=== PATIENT | male | born 1950 | race Caucasian/White ===

== ENCOUNTER 2022-12-25 04:17 | Day surgery (SDC) | payer OTHER ==
[2022-12-24 09:31] VITALS: BMI 37.4
[2022-12-25] MEDS ORDERED: MIDAZOLAM HCL 2 MG/2 ML SINGLE DOSE VIAL ONE (09:10)
[2022-12-25] MEDS ORDERED: ONDANSETRON 4 MG/2 ML VIAL ONE (09:50)
[2022-12-25] MEDS ORDERED: ONABOTULINUMTOXINA 200 UNIT/VIAL VIAL IM ONE (10:07)
[2022-12-25 10:48] VITALS: PULSE 60; RESP 16
[2022-12-25 12:22] VITALS: BP 142/81; TEMP 97.5
== END 2022-12-25 12:20 | disposition home or self-care (01) ==
LOC: JASU-SURG 04:17
PROVIDERS: ATTEND Surgery
PROC: 015M3ZZ Destruction of Abdominal Sympathetic Nerve, Percutaneous Approach (ICD-10-PCS; principal; 2022-12-25 10:00)
DX: K43.9 Ventral hernia without obstruction or gangrene (principal)
CPT/HCPCS: J0585

== ENCOUNTER 2023-01-30 04:12 | Day surgery (SDC) | payer OTHER ==
[2023-01-28 11:44] VITALS: BMI 37.4
[2023-01-30] MEDS ORDERED: KETAMINE HCL 500 MG/10 ML VIAL ONE (07:12)
[2023-01-30] MEDS ORDERED: ROCURONIUM BROMIDE 50 MG/5 ML SYRINGE ONE ×2 (07:13→10:33)
[2023-01-30] MEDS ORDERED: PROPOFOL 20 ML ONE ×2 (07:13→07:18)
[2023-01-30] MEDS ORDERED: BUPIVACAINE HCL/PF 0.25% (2.5MG/ML) 10 ML VIAL ONE (07:49)
[2023-01-30] MEDS ORDERED: CEFOXITIN SODIUM 2 GM IVPB ONE (08:05)
[2023-01-30] MEDS ORDERED: HEPARIN NA (PORCINE) 5,000 UNITS/ML 1ML VIAL ONE ×2 (08:05→08:29)
[2023-01-30] MEDS ORDERED: HEPARIN NA (PORCINE) 5,000 UNITS/ML 1ML VIAL SQ ONE (08:30)
[2023-01-30] MEDS ORDERED: cefOXitin SODIUM 2 GM VIAL (RESTRICTED TO ID) IVPB ONE (08:30)
[2023-01-30] MEDS ORDERED: PROPOFOL 40 ML ONE (09:36)
[2023-01-30] MEDS ORDERED: SUCCINYLCHOLINE CHLORIDE 200 MG/10 ML SYRINGE ONE (09:39)
[2023-01-30] MEDS ORDERED: BUPIVACAINE HCL/PF 0.25% (2.5MG/ML) 10 ML VIAL IJ ONE ×2 (12:16→14:07)
[2023-01-30] MEDS ORDERED: traMADol HCL 50 MG TABLET PO PRN (15:39)
[2023-01-30] MEDS ORDERED: SODIUM CHLORIDE 1,000 ML IV SCH (17:30)
[2023-01-30] MEDS: CEFAZOLIN 1 GM in DEXTROSE 5%-WATER - 50 ML IVPB SCH (21:08)
[2023-01-30] MEDS: ACETAMINOPHEN 1000 MG/100 ML BAG IVPB SCH (21:50)
[2023-01-30] MEDS: BACLOFEN 10 MG TABLET (FP) PO SCH (21:50)
[2023-01-30] MEDS ORDERED: ATORVASTATIN CA 10 MG TABLET (FP) PO SCH (22:00)
[2023-01-31] MEDS: CEFAZOLIN 1 GM in DEXTROSE 5%-WATER - 50 ML IVPB SCH ×2 (01:27→10:30)
[2023-01-31] MEDS: ACETAMINOPHEN 1000 MG/100 ML BAG IVPB SCH ×2 (05:27→10:31)
[2023-01-31] MEDS: BACLOFEN 10 MG TABLET (FP) PO SCH ×2 (05:28→14:51)
[2023-01-31 08:08] LABS: BASO % 0.3 % (0-2.0); EOS % 1.7 % (0-4.5); HEMATOCRIT 38.3 % (35.4-49); HEMOGLOBIN 13.3 GM/dL (11.7-16.9); LYMPH % 17.5 % (8-40); MCH 31.9 pg (25.7-33.7); MCHC 34.7 g/dl (32.0-35.9); MEAN PLT VOLUME 9.7 fl (7.5-11.1); MONO % 9.9 % (3.8-10.2); NEUT % 70.6 % (42.8-82.8); PLATELET COUNT 172 10^3/uL (134-434); RBC 4.16 M/mm3 (4.00-5.60); RDW 14.5 % (11.9-15.9); WHITE BLOOD COUNT 7.3 K/mm3 (4.0-10.0)
[2023-01-31] MEDS ORDERED: TAMSULOSIN HCL 0.4 MG CAP PO SCH (08:30)
[2023-01-31 08:33] LABS: CALCIUM 8.1 mg/dL (8.5-10.1)
[2023-01-31 08:34] LABS: ALBUMIN 3.2 g/dl (3.4-5.0); BLOOD UREA NITROGEN 11.3 mg/dL (7-18)
[2023-01-31 08:37] LABS: CREATININE 0.9 mg/dL (0.55-1.3)
[2023-01-31 08:39] LABS: BILIRUBIN,TOTAL 1.7 mg/dL (0.2-1); TOT PROT 6.6 g/dl (6.4-8.2)
[2023-01-31] MEDS ORDERED: PATIENT'S OWN MEDICATION (NON-FORMULARY) (Mirabegron [Myrbetriq] 50 MG Tab.Er.24h) PO SCH (10:00)
[2023-01-31] MEDS ORDERED: amLODIPine BESYLATE 10 MG TABLET (FP) PO SCH (10:00)
[2023-01-31] MEDS ORDERED: ENOXAPARIN NA (PORCINE) 40 MG/0.4 ML DISP.SYRIN SQ SCH (10:00)
[2023-01-31 14:15] VITALS: BP 135/66; PULSE 97; RESP 20; TEMP 99
== END 2023-01-31 15:27 | disposition home or self-care (01) ==
LOC: JASUSAT 04:12 → J8W 18:13 → JASUSAT 01-31 15:27
PROVIDERS: ATTEND Student in an Organized Health Care Education/Training Program
PROC: 8E0W4CZ Robotic Assisted Procedure of Trunk Region, Percutaneous Endoscopic Approach (ICD-10-PCS; 2023-01-30)
PROC: 0WUF4JZ Supplement Abdominal Wall with Synthetic Substitute, Percutaneous Endoscopic Approach (ICD-10-PCS; principal; 2023-01-30 08:00)
DX: K43.2 Incisional hernia without obstruction or gangrene (principal)
CPT/HCPCS: 36415; 80053; 82962; 85025; 86850; 86900; 86901; 94760; C1781; C9803-CS; J0475; J1644; U0003; U0005